=== PATIENT | male | born 1970 | race Caucasian/White ===

== ENCOUNTER 2017-03-08 21:41 | Emergency (ER) | payer MEDICAID ==
[~2017-03-08] VITALS: Ht 182.9 cm; Wt 122.2 kg
[~2017-03-08 21:41] MED LIST: OXYC-302 PO
[2017-03-08 21:44] VITALS: BP 152/105
[2017-03-08] MEDS ORDERED: HYDROmorphone 1 MG/ML, 1ML ONE (22:41)
[2017-03-08] MEDS ORDERED: HYDROmorphone 1 MG/ML, 1ML IM ONE (23:00)
== END 2017-03-08 23:52 | disposition home or self-care (01) ==
LOC: ED 23:16
DX: M79.661 Pain in right lower leg (principal)
CPT/HCPCS: 73590; 96372; 99284; J1170

== ENCOUNTER 2020-03-07 05:46 | Emergency (ER) | payer MEDICAID ==
[~2020-03-07] VITALS: Ht 182.9 cm; Wt 133.0 kg
[2020-03-07] MEDS ORDERED: ALBU2.5V NEB (06:16)
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
[2020-03-07] MEDS ORDERED: ALBUTEROL SULFATE 2.5 MG/3 ML NPPB ONE (06:30)
[2020-03-07] MEDS ORDERED: ALBUTEROL/IPRATROPIUM 2.5MG/0.5MG, 3 ML NEB ONE (06:30)
[2020-03-07] MEDS ORDERED: OXYcodone IR 5MG TABLET PO ONE (06:30)
[2020-03-07] MEDS ORDERED: OXYcodone IR 5MG TABLET ONE (06:41)
[2020-03-07] MEDS ORDERED: ALBUTEROL/IPRATROPIUM 2.5MG/0.5MG, 3 ML ONE (06:42)
[2020-03-07] MEDS ORDERED: ALBUTEROL SULFATE 2.5 MG/3 ML ONE (06:42)
--- NOTE | 2020-03-07 07:05 | NUR ---
PATIENT MEDICATED PER EMAR, BREATHING TREATMENTS COMPLETED.
[2020-03-07 07:18] LABS: ALBUMIN 4.1 g/dL (3.4-5.0); ANION GAP 7 mmol/L (5-15); BASOPHILS # (AUTO) 0.05 x10^3/uL (0-0.1); BASOPHILS % (AUTO) 1 % (0-1); CALCIUM 8.9 mg/dL (8.5-10.1); CHLORIDE 110 mmol/L (98-107); CREATININE 0.94 mg/dL (0.7-1.3); EOSINOPHILS # (AUTO) 0.56 x10^3/uL (0-0.4); EOSINOPHILS % (AUTO) 6 % (1-7); LYMPHOCYTES % (AUTO) 15 % (22-44); MD NO; MEAN CORPUSCULAR HEMOGLOBIN 31.4 pg (27.5-34.5); MEAN CORPUSCULAR HGB CONC 33.6 g/dL (33.2-36.2); MEAN CORPUSCULAR VOLUME 93.6 fL (81-97); MEAN PLATELET VOLUME 7.8 fL (7.4-10.4); MONOCYTES # (AUTO) 0.51 x10^3/uL (0.2-0.8); MONOCYTES % (AUTO) 6 % (2-9); NEUTROPHILS # (AUTO) 6.38 x10^3/uL (1.8-6.8); NEUTROPHILS % (AUTO) 73 % (42-75); PLATELET COUNT 284 x10^3/uL (130-400); RED CELL DISTRIBUTION WIDTH 13.9 % (9.4-14.8)
--- NOTE | 2020-03-07 07:21 | NUR ---
REPORT GIVEN TO IRLANDA, PLAN OF CARE DISCUSSED
--- NOTE | 2020-03-07 07:25 | NUR ---
REPORT RECEIVED FROM STEPHANI MAHMOOD. ASSUMING PRIMARY CARE OF PT.
[2020-03-07] MEDS ORDERED: KETOROLAC 30 MG/1 ML IVPush ONE (08:30)
[2020-03-07] MEDS ORDERED: KETOROLAC 30 MG/1 ML ONE (08:30)
[2020-03-07 08:41] VITALS: BP 148/88
--- NOTE | 2020-03-07 08:45 | NUR ---
CT WAITING FOR OPEN CT ROOM
--- NOTE | 2020-03-07 08:46 | NUR ---
PIV ACCESS OBTAINED, 20 RUARM. AWAITING CTA. PT STATES IN PAIN BUT IS REFUSING TORADOL AT THIS TIME. FLUIDS BEING ADMINISTERED PER EMAR.
[2020-03-07] MEDS ORDERED: SODIUM CHLORIDE 0.9%, 500ML IVBOLUS ONE (09:00)
--- NOTE | 2020-03-07 09:13 | NUR ---
RN INFORMED ERMD THAT PATIENT REFUSED THE TORADOL BUT IS COMPLAINING OF PAIN. OKAY BY KRIS TO ORDER 1 TIME ORDER OF 4MG MORPHINE IV NOW.
[2020-03-07] MEDS ORDERED: MORPHINE SULFATE 4 MG/ML, 1ML ONE (09:14)
[2020-03-07] MEDS ORDERED: MORPHINE SULFATE 4 MG/ML, 1ML IVPush ONE (09:30)
--- NOTE | 2020-03-07 09:30 | NUR ---
PT NOT COOPERATING WITH BLOOD PRESSURE OR PULSE OX MONITORING.
[2020-03-07] MEDS ORDERED: OMNIPAQUE 350 MG/ML, 150 ML BOTTLE ONE (09:59)
--- NOTE | 2020-03-07 10:05 | NUR ---
PT RETURNED FROM CTA. PENDING RESULTS.
== END 2020-03-07 11:09 | disposition home or self-care (01) ==
LOC: ED 06:08
DX: J44.1 Chronic obstructive pulmonary disease with (acute) exacerbation (principal); J98.11 Atelectasis
CPT/HCPCS: 36415; 71045; 71275; 80048; 82040; 85025; 85379; 93005; 96374; 99285; J2270; J7040; J7613; Q9967

== ENCOUNTER 2020-04-14 07:53 | Emergency (ER) | payer MEDICAID ==
[~2020-04-14] VITALS: Ht 182.9 cm; Wt 133.0 kg
[~2020-04-14 07:53] MED LIST changes: +ALBU2.5V NEB
[2020-04-14 07:57] VITALS: BP 195/109
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
--- NOTE | 2020-04-14 08:56 | NUR ---
PT OK W RN GIVING INFORMATION TO .
[2020-04-14] MEDS ORDERED: SODIUM CHLORIDE FLUSH 10ML SYR IVF ONE (09:00)
--- NOTE | 2020-04-14 09:21 | NUR ---
LABS DRAWN/ IV ESTABLISHED
[2020-04-14 09:26] LABS: BASOPHILS # (AUTO) 0.02 x10^3/uL (0-0.1); BASOPHILS % (AUTO) 0 % (0-1); EOSINOPHILS # (AUTO) 0.43 x10^3/uL (0-0.4); EOSINOPHILS % (AUTO) 6 % (1-7); LYMPHOCYTES # (AUTO) 1.28 x10^3/uL (1-3.4); LYMPHOCYTES % (AUTO) 17 % (22-44); MD NO; MEAN CORPUSCULAR HEMOGLOBIN 31.1 pg (27.5-34.5); MEAN CORPUSCULAR HGB CONC 33.4 g/dL (33.2-36.2); MEAN CORPUSCULAR VOLUME 92.9 fL (81-97); MEAN PLATELET VOLUME 8.1 fL (7.4-10.4); MONOCYTES # (AUTO) 0.61 x10^3/uL (0.2-0.8); MONOCYTES % (AUTO) 8 % (2-9); NEUTROPHILS # (AUTO) 5.35 x10^3/uL (1.8-6.8); NEUTROPHILS % (AUTO) 70 % (42-75); PLATELET COUNT 284 x10^3/uL (130-400); RED BLOOD COUNT 5.64 x10^6/uL (4.38-5.82)
[2020-04-14 09:40] LABS: ALBUMIN 4.2 g/dL (3.4-5.0); ANION GAP 5 mmol/L (5-15); CALCIUM 8.9 mg/dL (8.5-10.1); CHLORIDE 110 mmol/L (98-107)
[2020-04-14 09:43] LABS: ALANINE AMINOTRANSFERASE 36 U/L (12-78); ALKALINE PHOSPHATASE 85 U/L (45-117); BILIRUBIN,TOTAL 0.5 mg/dL (0.2-1.0); TOTAL PROTEIN 8.3 g/dL (6.4-8.2); TROPONIN I < 0.015 ng/mL (0.000-0.045)
--- NOTE | 2020-04-14 10:13 | NUR ---
CT DELAY; BOTH ROOMS WITH PATIENTS
[2020-04-14] MEDS ORDERED: KETOROLAC 30 MG/1 ML IVPush ONE (10:30)
[2020-04-14] MEDS ORDERED: KETOROLAC 30 MG/1 ML ONE (10:31)
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
== END 2020-04-14 10:53 | disposition left against medical advice (07) ==
LOC: ED 09:24
DX: R07.89 Other chest pain (principal); R06.02 Shortness of breath; R94.31 Abnormal electrocardiogram [ECG] [EKG]; J44.9 Chronic obstructive pulmonary disease, unspecified
CPT/HCPCS: 36415; 80053; 83880; 84484; 85025; 93005; 99284